=== PATIENT | female | born 2005 | race American Indian/Alaskan Native ===

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

== ENCOUNTER 2023-09-30 03:05 | Emergency (ER) | payer MEDICAID ==
[2023-09-30 03:36] LABS: BASOPHILS PERCENT AUTO 0.1 % (0.0-1.0); EOSINOPHILS PERCENT AUTO 0.9 % (1.0-3.0); HEMATOCRIT 29.7 % (37.0-47.0); HEMOGLOBIN 9.2 g/dL (12.0-16.0); MEAN CORPUSCULAR HEMOGLOBIN 23.7 pg (27.0-34.0); MEAN CORPUSCULAR VOLUME 76.5 fL (80-100); MONOCYTES PERCENT AUTO 5.6 % (2-8); NEUTROPHILS PERCENT AUTO 75.4 % (42.2-75.2); PLATELET COUNT,PLT 407 10^3/uL (150-450); RED BLOOD CELL COUNT 3.88 10^6/uL (4.2-5.4); WHITE BLOOD CELL COUNT,WBC 15.3 10^3/uL (5.0-10.0)
[2023-09-30] MEDS: Morphine 4 MG/ML Syringe IVPUSH ONE (03:37)
[2023-09-30] MEDS: Ketorolac 30 MG/ML SDV IVPUSH ONE (03:38)
[2023-09-30] MEDS: Sodium Chloride 0.9% 1,000 ML IV ONE (03:41)
[2023-09-30] MEDS: Ondansetron 4 MG in Sodium Chloride 0.9% 50 ML IV ONE (03:43)
[2023-09-30] MEDS: Ondansetron 4 MG/2 ML SDV IVPUSH ONE (03:44)
[2023-09-30 04:00] LABS: ALANINE AMINOTRANSFERASE,ALT 35 U/L (14-59); ALBUMIN 3.1 g/dL (3.4-5.0); ALKALINE PHOSPHATASE 120 U/L (46-116); ANION GAP 15.8 mEq/L (7-13); ASPARTATE AMNIOTRANSFERASE,AST 75 U/L (15-37); BILIRUBIN TOTAL 0.6 mg/dL (0.2-1.0); BLOOD UREA NITROGEN,BUN 13 mg/dL (7-18); BUN/CREATININE RATIO 17.3 (No establ ref range); CALCIUM 8.2 mg/dL (8.5-10.1); CARBON DIOXIDE,CO2 27 mmol/L (21-32); CHLORIDE,CL 103 mmol/L (98-107); CREATININE 0.75 mg/dL (0.55-1.02); GLUCOSE RANDOM 151 mg/dL (70-99); LIPASE 54 U/L (16-77); MAGNESIUM 1.7 mg/dL (1.8-2.4); POTASSIUM,K 3.8 mmol/L (3.5-5.1); PROTEIN TOTAL,TP 6.7 g/dL (6.4-8.2); SODIUM,NA 142 mmol/L (136-145)
[2023-09-30 04:03] LABS: LACTIC ACID 1.5 mmol/L (0.4-2.0)
[2023-09-30 04:12] LABS: A/G RATIO 0.86; ESTIMATED GFR 117 mL/min (>=60)
[2023-09-30 05:09] LABS: APPEARANCE,URINE CLEAR (CLEAR); BILIRUBIN,URINE NEGATIVE (NEGATIVE); COLOR,URINE YELLOW (YELLOW); GLUCOSE,URINE NEGATIVE (NEGATIVE); KETONES,URINE NEGATIVE (NEGATIVE); LEUKOCYTE ESTERASE,URINE NEGATIVE (NEGATIVE); NITRITE,URINE NEGATIVE (NEGATIVE); OCCULT BLOOD,URINE SMALL (NEGATIVE); PROTEIN,URINE NEGATIVE (NEGATIVE)
[2023-09-30 05:30] LABS: BACTERIA,URINE FEW /HPF (0-FEW/HPF); EPITHELIAL CELLS,URINE FEW /HPF (NOT SEEN); RBC,URINE 0-5 /HPF (0-5); WBC,URINE 0-5 /HPF (0-5/HPF)
[2023-09-30 06:49] VITALS: BP 128/62; PULSE 114
== END 2023-09-30 06:13 | disposition home or self-care (01) ==
LOC: DL.ED 03:05
DX: K29.70 Gastritis, unspecified, without bleeding (principal); E11.9 Type 2 diabetes mellitus without complications; Z79.84 Long term (current) use of oral hypoglycemic drugs; Z79.899 Other long term (current) drug therapy
CPT/HCPCS: 36415; 80053; 81001; 83605; 83690; 83735; 84702; 85025; 96361; 96374; 96375; 99284-25; J1885; J2270; J2405; J7030